=== PATIENT | female | born 1990 ===

== ENCOUNTER 2017-11-27 18:07 | Emergency (ER) | payer OTHER ==
[~2017-11-27] VITALS: Ht 165.1 cm; Wt 56.7 kg
[~2017-11-27 18:07] MED LIST: CEFTIN250 MG PO; KETO10TA2 PO; SILVADENE50 GM TP
[2017-11-27] MEDS ORDERED: LISINOPRIL20 MG PO (18:45)
== END 2017-11-27 22:42 | disposition home or self-care (01) ==
LOC: ER 18:07
DX: N93.8 Other specified abnormal uterine and vaginal bleeding (principal); N83.292 Other ovarian cyst, left side

== ENCOUNTER 2018-07-20 10:28 | Emergency (ER) | payer OTHER ==
[~2018-07-20] VITALS: Ht 165.1 cm; Wt 59.0 kg
[~2018-07-20 10:28] MED LIST changes: +LISINOPRIL20 MG PO
== END 2018-07-20 14:10 | disposition home or self-care (01) ==
LOC: ER 10:28
DX: B34.9 Viral infection, unspecified (principal)